=== PATIENT | female | born 1970 | race African-American/Black ===

== ENCOUNTER 2017-04-06 11:46 | Emergency (ER) | payer SELFPAY ==
--- NOTE | 2017-04-06 12:23 | ER Document Report ---
HPI - HPI Patient complains to provider of: Left knee pain Pain Level: 4 Context: Patient is a 46-year-old female who presents emergency department complaining of left knee pain. She states that she fell about 2 weeks ago and has had pain with walking and motion ever since. She admits to some swelling in her knee and her left foot but otherwise denies any recent trauma. She has difficulty bending her knee past 90. Otherwise denies any calf pain, fevers. - CONSTITUTIONAL Constitutional: DENIES: Fever, Chills - EENT EENT: DENIES: Sore Throat, Ear Pain, Eye problems - NEURO Neurology: DENIES: Headache, Weakness, Vision blurred, Dizzinesss / Vertigo - CARDIOVASCULAR Cardiovascular: DENIES: Chest pain - RESPIRATORY Respiratory: DENIES: Trouble Breathing, Coughing - GASTROINTESTINAL Gastrointestinal: DENIES: Abdominal Pain, Black / Bloody Stools - URINARY Urinary: DENIES: Dysuria, Urgency, Frequency - REPRODUCTIVE Reproductive: DENIES: :, Postmenopausal - hsyt, Abnormal bleeding / discharge - MUSCULOSKELETAL Musculoskeletal: REPORTS: Extremity pain - lt knee and rt leg Past Medical History - Social History Smoking Status: Former Smoker Chew tobacco use (# tins/day): No Frequency of alcohol use: None Drug Abuse: None Family History: Reviewed & Not Pertinent Patient has suicidal ideation: No Patient has homicidal ideation: No Pulmonary Medical History: Reports: Hx Pneumonia Renal/ Medical History: Denies: Hx Peritoneal Dialysis Past Surgical History: Reports: Hx Cholecystectomy, Hx Hysterectomy, Hx Orthopedic Surgery - right face plate - Immunizations Immunizations up to date: No Hx Diphtheria, Pertussis, Tetanus Vaccination: No Vertical Provider Document - CONSTITUTIONAL Agree With Documented VS: Yes Notes: PHYSICAL EXAM GENERAL: Alert, interacts well. EXTREMITIES: Moves all 4 extremities spontaneously. Left knee without any evidence of effusion, tenderness along the lateral aspect of the left knee and the tip of the fibula. Hip nontender with full range of motion. Left ankle nontender with some edema but no pitting edema, erythema, tenderness in the ankle of the foot. Sensation intact above and below the knee. Dorsalis pedis pulses 2/4 bilaterally. No cyanosis. NEUROLOGICAL: Alert and oriented x4. Normal speech. PSYCH: Normal affect, normal mood. SKIN: Warm, dry, normal turgor. No rashes or lesions noted. - INFECTION CONTROL TRAVEL OUTSIDE OF THE [place] IN LAST 30 DAYS: No - RESPIRATORY O2 Sat by Pulse Oximetry: 98 Course - Re-evaluation Re-evalutation: 04/06/17 13:16 Patient is a 46-year-old female who is hemodynamically stable, no acute distress afebrile. Able to bear weight on the injured extremity and neurovascularly intact. No evidence of a septic joint, gout flare, dislocation , or fracture on exam and imaging. Vitals wnl. At this time, I do not see an indication for labs or further imaging. Presentation is consistent with an internal knee injury. Therefore we will referred her to orthopedics for further evaluation. Will discharge with conservative measures, return precautions, and follow-up recommendations. - Vital Signs Vital signs: Temp Pulse Resp BP Pulse Ox 98.3 F 69 20 139/82 H 98 04/06/17 11:53 04/06/17 11:53 04/06/17 11:53 04/06/17 11:53 04/06/17 11:53 - Diagnostic Test Radiology reviewed: Image reviewed, Reports reviewed Discharge - Discharge Clinical Impression: Knee pain Qualifiers: Chronicity: acute Laterality: left Qualified Code(s): M25.562 - Pain in left knee Condition: Good Disposition: HOME, SELF-CARE Instructions: Ice & Elevation ([facility]), Suspected Internal Knee Injury ([facility]) Prescriptions: Methylprednisolone [Medrol Dosepack (4 mg/Tab) 21 Tab/Dosepak] 4 mg PO ASDIR PRN #21 [email or web address] PRN Reason: Referrals: FANY CONTRERAS MD [ACTIVE STAFF] - Follow up in 1 week
--- NOTE | 2017-04-06 13:10 | RADIOLOGY REPORT (SQ) ---
EXAM DESCRIPTION: KNEE LEFT 4 VIEW COMPLETED DATE/TIME: 04/06/2017 1:00 pm REASON FOR STUDY: pain lateral knee, fell 2 weeks ago COMPARISON: None. NUMBER OF VIEWS: Four views. TECHNIQUE: AP, lateral, and both oblique radiographic images acquired of the left knee. LIMITATIONS: None. FINDINGS: MINERALIZATION: Normal. BONES: No acute fracture or dislocation. No worrisome bone lesions. JOINT: No effusion. SOFT TISSUES: No soft tissue swelling. No radio-opaque foreign body. OTHER: No other significant finding. IMPRESSION: NEGATIVE STUDY OF THE LEFT KNEE. NO RADIOGRAPHIC EVIDENCE OF ACUTE INJURY. TECHNICAL DOCUMENTATION: JOB ID: [id number] [employer]- All Rights Reserved
[2017-04-06] MEDS ORDERED: KETOROLAC TROMETHAMINE INJ/PF 30 MG/1 ML SDV IM ONE (13:18)
[2017-04-06] MEDS ORDERED: METHYLPREDNISOLONE INJ 40 MG/1 ML SDV IM ONE (13:18)
[2017-04-06 14:15] VITALS: BP 139/87
== END 2017-04-06 14:12 | disposition home or self-care (01) ==
LOC: ER 11:46
DX: M25.562 Pain in left knee (principal); M79.672 Pain in left foot; M79.89 Other specified soft tissue disorders
CPT/HCPCS: 99283; 96372; 73562; J2920; J1885